=== PATIENT | female | born 1995 ===

== ENCOUNTER 2018-11-23 09:18 | Emergency (ER) | payer BC ==
[2018-11-23 09:42] VITALS: RESP 18
[2018-11-23] MEDS ORDERED: Sodium Chloride 0.9% 1,000 ML IV STA (10:15)
[2018-11-23 10:59] LABS: BASO % 0.7 % (0.0-2.0); EOS # 0.2 K/uL (0.0-0.7); EOS % 3.9 % (0.0-4.0); HEMOGLOBIN 13.6 g/dL (12.0-16.0); LYMPH # 2.1 K/uL (1.0-4.3); LYMPH % 38.1 % (20.0-40.0); MEAN CELL VOLUME 87.7 fl (81.0-99.0); MEAN CORPUSCULAR HEMOGLOBIN 29.7 pg (27.0-31.0); MEAN CORPUSCULAR HGB CONC 33.9 g/dL (33.0-37.0); MEAN PLATELET VOLUME 8.3 fl (7.2-11.7); MONO # 0.4 K/uL (0.0-0.8); MONO % 7.4 % (0.0-10.0); NEUT # 2.7 K/uL (1.8-7.0); NEUT % 49.9 % (50.0-75.0); RBC 4.58 Mil/uL (3.80-5.20); RED CELL DISTRIBUTION WIDTH 13.4 % (11.5-14.5); WHITE BLOOD COUNT 5.4 K/uL (4.8-10.8)
[2018-11-23 11:11] LABS: ALB/GLOB RATIO 1.6 (1.0-2.1); ALBUMIN 4.7 g/dL (3.5-5.0); ALT/SGPT 35 U/L (9-52); AST/SGOT 55 U/L (14-36); BLOOD UREA NITROGEN 13 mg/dl (7-17); CALCIUM 9.7 mg/dL (8.4-10.2); GFR NON-AFRICAN AMERICAN > 60
--- NOTE | 2018-11-23 11:31 | ED PDOC ---
HPI: Abdomen Time Seen by Provider: 11/23/18 10:10 Chief Complaint (Nursing): Abdominal Pain Chief Complaint (Provider): abdominal pain History Per: Patient History/Exam Limitations: no limitations Onset/Duration Of Symptoms: Days (1), Gradual Current Symptoms Are (Timing): Still Present Location Of Pain/Discomfort: RLQ Quality Of Discomfort: Sharp Associated Symptoms: Loss Of Appetite. denies: Fever, Chills, Nausea, Vomiting, Diarrhea Exacerbating Factors: None Alleviating Factors: None Additional Complaint(s): 23yo female c/o R sided abdominal pain, sent from urgent care for evaluation for possible appendicitis. States pain started yesterday and progressed this morning. Has mildly diminished appetite but denies fever, nausea, vomiting or diarrhea. Denies urinary or vaginal symptoms. States pain slightly radiating to R leg. Past Medical History Reviewed: Historical Data, Nursing Documentation, Vital Signs Vital Signs: Last Vital Signs Temp 98.6 F 11/23/18 09:42 Pulse 68 11/23/18 09:42 Resp 18 11/23/18 09:42 BP 141/81 11/23/18 09:42 Pulse Ox 100 11/23/18 09:42 - Medical History Other PMH: PCOS - Surgical History Other surgeries: arm fx/ orthopedic as child - Family History Family History: States: Unknown Family Hx - Living Arrangements Living Arrangements: With Family - Home Medications Home Medications: Ambulatory Orders Medication Instructions Recorded Ibuprofen [Motrin Tab] 600 mg PO Q6 PRN #15 tab 11/23/18 - Allergies Allergies/Adverse Reactions: Allergies Allergy/AdvReac Type Severity Reaction Status Date / Time No Known Allergies Allergy Verified 11/23/18 09:44 Review of Systems Constitutional: Negative for: Fever Eyes: Negative for: Vision Change ENT: Negative for: Throat Pain Cardiovascular: Negative for: Chest Pain Respiratory: Negative for: Shortness of Breath Gastrointestinal: Positive for: Abdominal Pain. Negative for: Nausea, Vomiting, Diarrhea Genitourinary Female: Negative for: Dysuria Musculoskeletal: Positive for: Leg Pain. Negative for: Neck Pain, Shoulder Pain, Back Pain Skin: Negative for: Rash Neurological: Negative for: Weakness, Numbness Psych: Negative for: Suicidal ideation Physical Exam - Reviewed Nursing Documentation Reviewed: Yes Vital Signs Reviewed: Yes - Physical Exam Appears: Positive for: Well, Non-toxic, No Acute Distress Head Exam: Positive for: ATRAUMATIC, NORMAL INSPECTION, NORMOCEPHALIC Skin: Positive for: Normal Color, Warm, DRY Eye Exam: Positive for: EOMI, Normal appearance, PERRL ENT: Positive for: Normal ENT Inspection Neck: Positive for: Normal, Painless ROM Cardiovascular/Chest: Positive for: Regular Rate, Rhythm Respiratory: Positive for: CNT, Normal Breath Sounds Pulses-Radial (L): 3+/4+ Pulses-Radial (R): 3+/4+ Gastrointestinal/Abdominal: Positive for: Soft, Tenderness (RLQ tenderness). Negative for: Guarding, Rebound Back: Positive for: Normal Inspection Extremity: Positive for: Normal ROM Neurologic/Psych: Positive for: Alert, Oriented - Laboratory Results Result Diagrams: 11/23/18 10:46 11/23/18 10:46 Lab Results: Total Bilirubin 1.2 mg/dl (0.2-1.3) 11/23/18 10:46 AST 55 U/L (14-36) H 11/23/18 10:46 ALT 35 U/L (9-52) 11/23/18 10:46 Alkaline Phosphatase 76 U/L (38-126) 11/23/18 10:46 Total Protein 7.7 G/DL (6.3-8.2) 11/23/18 10:46 Albumin 4.7 g/dL (3.5-5.0) 11/23/18 10:46 Globulin 3.0 gm/dL (2.2-3.9) 11/23/18 10:46 Albumin/Globulin Ratio 1.6 (1.0-2.1) 11/23/18 10:46 Urine POC: Negative - ECG O2 Sat by Pulse Oximetry: 100 Pulse Ox Interpretation: Normal Medical Decision Making Medical Decision Making: workup for RLQ pain initiated w bloodwork, CT abd pelv and UA. r/o appendicitis, torsion, ovarian cyst vs muscle strain/other Accession No. : [id number] Patient Name / ID : LAN VILLA / [id number] Exam Date : 11/23/2018 14:21:00 ( Approved ) Study Comment : Sex / Age : M / 34Y Creator : Kai Daley MD Dictator : Kai Daley MD Polysomnograph Tech : Environmental Control Administrator : Kai Daley MD Approver2 : Report Date : 11/23/2018 15:41:17 My Comment : Date of service: 11/23/2018 PROCEDURE: CT Abdomen and Pelvis with contrast HISTORY: upper abd pain vomiting COMPARISON: Not available TECHNIQUE: Contrast dose: 95 cc Omnipaque 300 Radiation dose: Total exam DLP = 286.5 mGy-cm. This CT exam was performed using one or more of the following dose reduction techniques: Automated exposure control, adjustment of the mA and/or kV according to patient size, and/or use of iterative reconstruction technique. FINDINGS: LOWER THORAX: Unremarkable. LIVER: Unremarkable. No gross lesion or ductal dilatation. GALLBLADDER AND BILE DUCTS: Unremarkable. PANCREAS: Unremarkable. No gross lesion or ductal dilatation. SPLEEN: Unremarkable. ADRENALS: Unremarkable. No mass. KIDNEYS AND URETERS: Unremarkable. No hydronephrosis. No solid mass. VASCULATURE: Unremarkable. No aortic aneurysm. No aortic atherosclerotic calcification or mural plaque present. BOWEL: There is mild colitis involving the ascending, transverse and descending colon but sparing the rectosigmoid colon. Nonspecific. There is an enteritis involving multiple loops of jejunum with circumferential mural thickening. No evidence of bowel obstruction. APPENDIX: Not positively identified. No secondary findings to suggest acute appendicitis. PERITONEUM: Unremarkable. No free fluid. No free air. LYMPH NODES: Unremarkable. No enlarged lymph nodes. BLADDER: Nondistended REPRODUCTIVE: Normal prostate BONES: No acute fracture. OTHER FINDINGS: None. IMPRESSION: Nonspecific enterocolitis. No bowel obstruction. No additional abnormality. improved in ED, Rx motrin and followup PMD Disposition - Clinical Impression Clinical Impression: Mesenteric adenitis - Patient ED Disposition Is Patient to be Admitted: No - Disposition Referrals: Skip Story MD [Medical Doctor] - Disposition: Routine/Home Disposition Time: 16:00 Condition: STABLE Additional Instructions: Followup with primary doctor in 3-4 days. Return to ER for any worse or new symptoms. Prescriptions: Ibuprofen [Motrin Tab] 600 mg PO Q6 PRN #15 tab PRN Reason: Pain, Moderate (4-7) Instructions: Mesenteric Lymphadenitis (DC) Forms: [employer] ([place])
[2018-11-23] MEDS ORDERED: Sodium Chloride 0.9% 50 ML IV ONE (12:42)
[2018-11-23] MEDS ORDERED: Iohexol 300 100 ML IJ ONE (12:42)
--- NOTE | 2018-11-23 15:09 | CT ---
Date of service: 11/23/2018 PROCEDURE: CT Abdomen and Pelvis with contrast HISTORY: RLQ pain COMPARISON: None. TECHNIQUE: Contrast dose: None 95 cc Omnipaque 300 Radiation dose: Total exam DLP = 947.62 mGy-cm. This CT exam was performed using one or more of the following dose reduction techniques: Automated exposure control, adjustment of the mA and/or kV according to patient size, and/or use of iterative reconstruction technique. FINDINGS: LOWER THORAX: Unremarkable. LIVER: Unremarkable. No gross lesion or ductal dilatation. GALLBLADDER AND BILE DUCTS: Unremarkable. PANCREAS: Unremarkable. No gross lesion or ductal dilatation. SPLEEN: Unremarkable. ADRENALS: Unremarkable. No mass. KIDNEYS AND URETERS: Unremarkable. No hydronephrosis. No solid mass. VASCULATURE: Unremarkable. No aortic aneurysm. No aortic atherosclerotic calcification or mural plaque present. BOWEL: Unremarkable. No obstruction. No gross mural thickening. APPENDIX: Normal appendix. PERITONEUM: Unremarkable. No free fluid. No free air. LYMPH NODES: No retroperitoneal or pelvic lymphadenopathy. There are shotty subcentimeter lymph nodes in the right lower quadrant medial to the cecum and ascending colon, 5-6 mm in diameter. Consistent with mesenteric adenitis. Shotty subcentimeter nodes are also seen within the small bowel mesentery. BLADDER: Unremarkable. REPRODUCTIVE: Normal uterus and ovaries BONES: No acute fracture. OTHER FINDINGS: None. IMPRESSION: No evidence of acute appendicitis. Findings consistent with mesenteric adenitis.
[2018-11-23 19:32] VITALS: BP 116/84; PULSE 80; TEMP 98.2; O2SAT 99
--- NOTE | 2018-11-24 08:46 | US ---
Date of service: 11/23/2018 HISTORY: pelvic pain COMPARISON: None available. TECHNIQUE: Grayscale, color Doppler and spectral evaluation the pelvis performed transabdominally and transvaginally FINDINGS: UTERUS: Measures 8.0 x 4.7 x 3.3 cm. Anteverted. Normal in size and appearance. No fibroid or other mass lesion seen. ENDOMETRIUM: Measures 8 mm in diameter. Unremarkable. CERVIX: No cervical abnormality identified. RIGHT OVARY: Measures 3.0 x 2.3 x 2.1 cm. No solid mass. Normal flow. LEFT OVARY: Measures 3.0 x 1.8 x 1.6 cm. No solid mass. Normal flow. FREE FLUID: No significant free fluid noted. OTHER FINDINGS: None. IMPRESSION: Unremarkable pelvic ultrasound.
== END 2018-11-23 19:31 | disposition home or self-care (01) ==
LOC: H.ER 09:18
DX: I88.0 Nonspecific mesenteric lymphadenitis (principal); E28.2 Polycystic ovarian syndrome; K52.9 Noninfective gastroenteritis and colitis, unspecified
CPT/HCPCS: 74177; 76830; 76856; 80053; 81025; 85025; 99284; J7030; Q9967